=== PATIENT | female | born 1975 | race Hispanic/Latino ===

== ENCOUNTER 2018-12-19 21:31 | Emergency (ER) | payer SELFPAY ==
[2018-12-19 22:09] LABS: #Basophils 0.2 thou/uL (0.0-0.2); #Eosinphils 0.1 thou/uL (0.0-0.7); #Monocytes 0.8 thou/uL (0.11-0.59); #Neutrophils 11.1 thou/uL (1.40-6.50); %Eosinophils 0.6 % (0.0-10.0); %Monocytes 4.9 % (0.0-10.0); %Neutrophils 64.6 % (42.0-75.0); Hemoglobin 13.4 g/dL (12.0-16.0); Mean Corpuscular HGB CONC 34.3 g/dL (32.0-36.0); Mean Corpuscular Volume 93.3 fL (78.0-98.0); Mean Platelet Volume 6.9 fL (7.4-10.4); Platelet Count 364 thou/uL (130-400); White Blood Cell (WBC) Count 17.2 thou/uL (4.8-10.8)
[2018-12-19 22:31] LABS: ALT (SGPT) 8 U/L (8-55); AST (SGOT) 12 U/L (5-34); Albumin 4.1 g/dL (3.5-5.0); Alkaline Phosphatase 117 U/L (40-150); Anion Gap 14 mmol/L (10-20); BUN (Urea Nitrogen) Less than 4 mg/dL (7.0-18.7); Bilirubin, Total 0.3 mg/dL (0.2-1.2); Calc. Creatinine Clearance 0 mL/min (70-130); Calcium 9.4 mg/dL (7.8-10.44); Carbon Dioxide 25 mmol/L (22-29); Chloride 91 mmol/L (98-107); Estimated GFR-MDRD Greater than 90; Globulin 2.9 g/dL (2.4-3.5); Glucose 108 mg/dL (70-105); Lipase 31 U/L (8-78); Potassium 3.2 mmol/L (3.5-5.1); Sodium 127 mmol/L (136-145)
[2018-12-19 22:34] LABS: Pregnancy Test - Urine (BHCG) Negative (Negative); Pregu Control Background? CLEAR/WHITE (CLR/WHITE); Pregu Control Bar Appear? YES (CONTROL BAR); Specific Gravity 1.001 (1.002-1.036)
[2018-12-19 22:39] LABS: Bilirubin Negative (Negative); Blood, Urine Negative (Negative); Clarity CLEAR (Clear); Glucose, Urine (Dipstick) Negative (Negative); Leukocyte Trace (Negative); Nitrite Negative (Negative); Protein, Urine (Dipstick) Negative (Neg-Trace); Urobilinogen 0.2 mg/dL (0.2-1.0); pH, Urine 6.5 (5.0-9.0)
[2018-12-19 22:41] LABS: Specific Gravity, Urine 1.001 (1.002-1.036)
[2018-12-19 22:42] LABS: Pathc Cast-AUWi Flag 0.13 (0-2.49)
[2018-12-19 22:45] LABS: Bacteria/HPF None Seen HPF (None Seen); Hyaline Casts/LPF 0-3 HYALINE CAST LPF (0-3 Hyaline); RBC/HPF 0-3 HPF (0-3); Squamous Epithelial 0-3 HPF (0-3); WBC/HPF 0-3 HPF (0-3)
--- NOTE | 2018-12-20 00:16 | ULT ---
Ultrasound abdomen limited: (Right upper quadrant) HISTORY: 43-year-old female with right upper quadrant/epigastric abdominal pain FINDINGS: Gallbladder: Normal wall thickness. No gallstones or sludge identified. No pericholecystic fluid. Liver: Normal parenchymal echogenicity. Right kidney: No hydronephrosis. Pancreas: Visualized, with no gross sonographic abnormality identified (although ultrasound is relati vely insensitive for the detection of pancreatic pathology compared to CT and MRI.). Common duct caliber: 6 mm. IMPRESSION: 1. Common duct at upper limits of normal. 2. Otherwise negative.
[2018-12-20] MEDS ORDERED: Morphine 4 MG/ML VIAL ONE (01:07)
[2018-12-20] MEDS ORDERED: Ondansetron PF 4 MG/2 ML Vial ONE (01:07)
--- NOTE | 2018-12-20 08:26 | CT ---
ABDOMEN AND PELVIS CT WITH CONTRAST: INDICATION: Epigastric and right upper quadrant pain. FINDINGS: No acute abnormalities are identified within the solid abdominal organs. The bowel is incompletely c haracterized the presence of enteric contrast. The visualized lung bases reveal no consolidation, or evidence of pleural effusion. No free air or significant ascites. There is moderate distention of the urinary bladder. The gallbladder is normal in caliber. There are no acute osseous abnormalities visualized. IMPRESSION: No definite acute process is identified within limitations. The bowel is incompletely assessed witho ut the presence of enteric contrast. POS: [facility]
[2018-12-20] MEDS ORDERED: ISOVUE-370 76%-LOCM 1 ML ONE (14:16)
== END 2018-12-20 03:10 | disposition home or self-care (01) ==
LOC: ERS 21:31
DX: R10.13 Epigastric pain (principal); E87.1 Hypo-osmolality and hyponatremia; E87.6 Hypokalemia; F32.9 Major depressive disorder, single episode, unspecified; G43.909 Migraine, unspecified, not intractable, without status migrainosus; F17.210 Nicotine dependence, cigarettes, uncomplicated; E11.9 Type 2 diabetes mellitus without complications
CPT/HCPCS: 36415; 36416; 74177; 76705; 80053; 81003; 81015; 81025; 83690; 85025; 93005; 96361; 96374; 96375; J2270; J2405; Q9966